=== PATIENT | male | born 1970 | race African-American/Black ===

== ENCOUNTER 2021-08-26 14:37 | Emergency (ER) | payer SELFPAY ==
[~2021-08-26] VITALS: Ht 167.6 cm; Wt 63.6 kg
[2021-08-26 14:38] VITALS: BP 159/92
[2021-08-26] MEDS ORDERED: NORV5TAB PO (15:03)
[2021-08-26] MEDS ORDERED: HYDR12.55 PO (15:03)
[2021-08-26] MEDS ORDERED: MELO15TA28 PO (15:03)
--- OUTSIDE RECORDS SUMMARY | 2021-08-26 16:39 | CCD ---
Author Author [facility] Address Unknown Phone Unavailable Support Name Relationship Address Phone UE Next Of Kin Unknown Unavailable VAZQUEZ CONTRERAS Next Of Kin [id number] [place] [address] Re-disclosure Warning The records that you are about to access may contain information from federally-assisted alcohol or drug abuse programs. If such information is present, then the following federally mandated warning applies: This information has been disclosed to you from records protected by federal confidentiality rules (42 CFR part 2). The federal rules prohibit you from making any further disclosure of this information unless further disclosure is expressly permitted by the written consent of the person to whom it pertains or as otherwise permitted by 42 CFR part 2. A general authorization for the release of medical or other information is NOT sufficient for this purpose. The Federal rules restrict any use of the information to criminally investigate or prosecute any alcohol or drug abuse patient.The records that you are about to access may contain highly sensitive health information, the redisclosure of which is protected by Article 27-F of the [facility] Public Health law. If you continue you may have access to information: Regarding HIV / AIDS; Provided by facilities licensed or operated by the [facility] Office of Mental Health; or Provided by the [facility] Office for People With Developmental Disabilities. If such information is present, then the following [facility] mandated warning applies: This information has been disclosed to you from confidential records which are protected by state law. State law prohibits you from making any further disclosure of this information without the specific written consent of the person to whom it pertains, or as otherwise permitted by law. Any unauthorized further disclosure in violation of state law may result in a fine or detention sentence or both. A general authorization for the release of medical or other information is NOT sufficient authorization for further disc losure. Medications No Information Insurance Providers Payer name Policy type / Coverage type Policy ID Covered democrat ID Covered democrat's relationship to bales Policy Bales Plan Information SELF PAY ONLY [id number] Problems, Conditions, and Diagnoses No Information Surgeries/Procedures No Information Results No Information Social History No Information
[2021-08-26] MEDS ORDERED: NS 1,000 ML IV ONE (17:20)
[2021-08-26 17:44] LABS: BASO % 0.3 % (0.0-1.0); EOS # 0.1 10^3/uL (0.0-0.5); EOS % 0.6 % (0.0-3.0); HEMATOCRIT 42.7 % (42.0-52.0); HEMOGLOBIN 14.2 g/dl (13.5-17.5); LYMPH # 2.2 10^3/uL (1.5-5.0); LYMPH % 21.1 % (24.0-44.0); MEAN CORPUSCULAR HEMOGLOBIN 34.5 pg (27.0-33.0); MEAN CORPUSCULAR HGB CONC 33.3 g/dl (32.0-36.5); MEAN CORPUSCULAR VOLUME 103.6 fl (80.0-96.0); MONO # 0.8 10^3/uL (0.0-0.8); MONO % 7.9 % (2.0-8.0); NEUTROPHILS # 7.1 10^3/uL (1.5-8.5); NEUTROPHILS % 69.8 % (36.0-66.0); PLATELET COUNT, AUTOMATED 296 10^3/uL (150-450); RED BLOOD COUNT 4.12 10^6/uL (4.30-6.10); WHITE BLOOD COUNT 10.2 10^3/uL (4.0-10.0)
[2021-08-26] MEDS ORDERED: ISOVUE-370 76% 100ML VIAL As Ordered ONE (17:53)
--- NOTE | 2021-08-26 19:17 | REPVR ---
PROCEDURE INFORMATION: Exam: CT Chest With Contrast; Diagnostic Exam date and time: 08/26/2021 5:56 PM Age: 51 years old Clinical indication: Other: Multiple masses (right scapula, right clavicle, right rib); Additional info: Multiple masses (right scapula, right clavicle, right rib) TECHNIQUE: Imaging protocol: Diagnostic computed tomography of the chest with contrast. 3D rendering (Not supervised by radiologist): MIP and/or 3D reconstructed images were created by the technologist. Radiation optimization: All CT scans at this facility use at least one of these dose optimization techniques: automated exposure control; mA and/or kV adjustment per patient size (includes targeted exams where dose is matched to clinical indication); or iterative reconstruction. Contrast material: ISOVUE 370; Contrast volume: 75 ml; Contrast route: INTRAVENOUS (IV); COMPARISON: No relevant prior studies available. FINDINGS: Thyroid: Included thyroid is unremarkable. Lungs: Minimal posterior dependent atelectasis particular in the lower lobes. There are a few scattered blebs or small areas of air trapping in the subpleural region posteriorly in the upper and lower lobes. Pleural spaces: Unremarkable. No pneumothorax. No pleural effusion. Heart: Heart size appears mildly enlarged. Aorta: Ascending thoracic aorta is at the upper limits of normal in caliber, measuring 3.8 cm. The aorta is mildly tortuous. Lymph nodes: There are multiple small bilateral axillary lymph nodes. No enlarged lymph nodes. Liver: Probable minimal diffuse fatty liver change. Bones/joints: Abnormality of the right clavicular head, the largest portion of which is located more anteriorly than the left clavicular head suggesting there may be instability/motion at the right sternoclavicular joint. There is fragmentation as well as suspected dystrophic calcification, as well as a large erosion. Fragmentation or potentially dystrophic calcification is displaced posteriorly, but this is only very slightly posterior to the posterior margin of the opposite left clavicular head. There is also increased synovial hypertrophy at the right sternoclavicular joint. It is unclear whether findings are from remote trauma, and motion with mechanical changes, inflammatory arthropathy, or infection with septic arthritis and osteomyelitis. There is also indentation in the contour along the right aspect of the sternum, but the clavicular head appears more affected than the sternum. There is discontinuity of calcification along the periphery of the right 8th rib costal cartilage as on series 202, image 100 into, with the more anteromedial portion slightly displaced posteriorly. No significant overlying soft tissue swelling. This most likely represents a remote fracture through costal cartilage of the right 8th rib and could result in a palpable abnormality. Tiny focus of air in the costal cartilage of the right 6th anterior rib which may reflect vacuum phenomenon. Soft tissues: There is a fat containing lesion within the subcutaneous fat at the right posterior shoulder, only partially included and therefore incompletely evaluated. This measures 7.7 cm medial-lateral by 3.5 cm anterior-posterior by at least 6.2 cm craniocaudal and is simple where included. IMPRESSION: 1. Abnormal right clavicular head, enlarged compared to the left clavicular head, with the largest portion located more anteriorly than the left clavicular head. Fragmentation and potentially dystrophic calcification, as well as large erosion in the articular surface of the clavicular head and less so in the sternum. Synovial hypertrophy at the right sternoclavicular joint as well. It is unclear whether findings are from remote trauma, with instability and motion causing mechanical changes, an inflammatory arthropathy, or infection with septic arthritis and osteomyelitis. Suggest correlation with patient history of prior injury or concern for infection, as well as physical examination. Consider further evaluation with MR with and without intravenous gadolinium. This can be performed with the patient prone to decrease breathing motion artifact. 2. Large fat containing subcutaneous lesion in the right posterior shoulder, consistent with a simple lipoma where included. Of note, this extends proximally outside of the field of view and is therefore incompletely evaluated. It cannot be determined from this study if the more superior aspect of this lesion is simple or not. CT through the proximal extent of the lesion, including all the soft tissues about the shoulder particularly extending through the superior most aspect of the shoulder, could be considered for further evaluation. 3. Fracture through the costal cartilage of the right 8th anterior rib, most likely remote. The more anteromedial component is displaced posteriorly by approximately the thickness of the costal cartilage with discontinuity of the peripheral calcification in the costal cartilage. This could contribute to a palpable abnormality. 4. Ascending thoracic aorta at the upper limits of normal in caliber measuring 3.8 cm, with mildly tortuous aorta and mild cardiomegaly. Electronically signed by: Kailey Navarro On 08/26/2021 19:16:43 PM
== END 2021-08-26 19:44 | disposition home or self-care (01) ==
LOC: M ED 14:37
DX: D17.1 Benign lipomatous neoplasm of skin and subcutaneous tissue of trunk (principal); M89.311 Hypertrophy of bone, right shoulder; S22.31XD Fracture of one rib, right side, subsequent encounter for fracture with routine healing; X58.XXXD Exposure to other specified factors, subsequent encounter; Y92.9 Unspecified place or not applicable; Y93.9 Activity, unspecified; Y99.9 Unspecified external cause status; I10 Essential (primary) hypertension; Z87.891 Personal history of nicotine dependence
CPT/HCPCS: 71260; 80047; 85025; 96360; 96361; 99283; Q9967